=== PATIENT | male | born 1955 | race Native Hawaiian/Other Pacific Islander ===

== ENCOUNTER 2016-07-17 10:37 | Emergency (ER) | payer OTHER ==
[~2016-07-17] VITALS: Ht 180.3 cm; Wt 96.2 kg
[~2016-07-17 10:37] MED LIST: ASPIRIN325 M2 PO; CARDURA1 MG PO; CLOP75TA2 PO; DOXA2TAB PO; EQ ASPIRIN325 M1 OR; EXFORGE1 TA1 PO; FISH OIL1000 MG PO; FURO20TA67 PO; GLIM4TAB PO; GLIP5TAB65 PO; IMDUR30 MG PO; INSU100I2 SC; METF100038 PO; METF500T PO; METO25TA4 PO; NAMENDA10 MG PO; NITR0.4S2 SL; SIMV40TA57; TGT ENTERIC-CO325 MG PO; VIT C/VIT E PO; VITAMIN D31000 UNIT PO; ZOCOR80 MG PO
[2016-07-17 11:36] LABS: SODIUM 135 mmol/L (136-145)
[2016-07-17 11:50] LABS: PARTIAL THROMBOPLASTIN TIME 23.8 SECONDS (24.5-33.6); PLATELET COUNT 203 K/uL (142-355)
[2016-07-17 12:25] VITALS: BP 132/82; TEMP 97.8
== END 2016-07-17 11:43 | disposition short-term general hospital (02) ==
LOC: ED 10:37
PROVIDERS: Emergency Medicine
DX: R07.89 Other chest pain (principal); R07.2 Precordial pain
CPT/HCPCS: 36415; 80053; 82550; 83735; 83880; 84484; 85027; 85379; 85610; 85730; 93005; 99283

== ENCOUNTER 2016-07-17 12:58 | Outpatient (CLI) | payer OTHER | END 2016-07-17 14:09 | disposition short-term general hospital (02) | LOC: AMB 12:58 | DX: R07.89 Other chest pain (principal); R07.2 Precordial pain | CPT/HCPCS: A0425; A0427 ==

== ENCOUNTER 2016-10-03 10:41 | Emergency (ER) | payer OTHER ==
[~2016-10-03] VITALS: Ht 180.3 cm; Wt 106.6 kg
[2016-10-03 11:26] LABS: PLATELET COUNT 220 K/uL (142-355)
[2016-10-03 11:58] LABS: PARTIAL THROMBOPLASTIN TIME 24.7 SECONDS (24.5-33.6)
[2016-10-03 12:52] LABS: POTASSIUM 3.6 mmol/L (3.6-5.2); SODIUM 137 mmol/L (136-145)
[2016-10-03 16:55] VITALS: BP 128/77; TEMP 98
== END 2016-10-03 16:55 | disposition home or self-care (01) ==
LOC: ED 10:41
PROVIDERS: Emergency Medicine
DX: R19.7 Diarrhea, unspecified (principal); R10.31 Right lower quadrant pain
CPT/HCPCS: 36415; 80053; 81000; 82272; 85027; 85610; 85730; 87045; 87205; 87493; 87798; 87899; 99283

== ENCOUNTER 2016-10-16 09:59 | Outpatient (CLI) | payer OTHER | END 2016-10-16 19:04 | disposition home or self-care (01) | LOC: US 09:59 | DX: M79.605 Pain in left leg (principal) ==

== ENCOUNTER 2016-11-05 09:01 | Outpatient (CLI) | payer OTHER | END 2016-11-05 19:43 | disposition home or self-care (01) | LOC: MRI 09:01 | DX: M25.562 Pain in left knee (principal) ==

== ENCOUNTER 2016-12-21 20:39 | Observation (INO) | payer OTHER ==
[~2016-12-21] VITALS: Ht 180.3 cm; Wt 98.7 kg
[2016-12-21 20:54] VITALS: BP 124/68; TEMP 98.4
[2016-12-21 22:45] LABS: PLATELET COUNT 210 K/uL (142-355)
[2016-12-22] MEDS ORDERED: LIPITOR80 MG PO (01:01)
[2016-12-22] MEDS ORDERED: INVOKANA100 MG PO (01:02)
[2016-12-22] MEDS ORDERED: PRAS10TA PO (01:02)
[2016-12-22] MEDS ORDERED: ALBUTEROL0.083 % IN (01:04)
[2016-12-22] MEDS ORDERED: NOVOLOG SC (01:05)
[2016-12-22 04:00] VITALS: BP 140/72; TEMP 97.9
[2016-12-22 04:30] VITALS: BP 158/77; TEMP 97.9; Ht 180.3 cm; Wt 98.7 kg
[2016-12-22 05:20] LABS: PLATELET COUNT 205 K/uL (142-355)
[2016-12-22 05:29] LABS: POTASSIUM 3.8 mmol/L (3.6-5.2); SODIUM 134 mmol/L (136-145)
[2016-12-22 08:00] VITALS: BP 142/46; TEMP 98
[2016-12-22 12:00] VITALS: BP 128/68; TEMP 97.8
[2016-12-22 16:00] VITALS: BP 143/72; TEMP 97.7
[2016-12-22 18:53] LABS: PARTIAL THROMBOPLASTIN TIME 25.9 SECONDS (24.5-33.6)
[2016-12-22 20:00] VITALS: BP 144/73; TEMP 97.5
[2016-12-23] VITALS: BP 136/70; TEMP 97.6
[2016-12-23 04:00] VITALS: BP 132/61; TEMP 97.7
[2016-12-23 06:00] LABS: POTASSIUM 4.1 mmol/L (3.6-5.2); SODIUM 137 mmol/L (136-145)
[2016-12-23 06:07] LABS: PLATELET COUNT 216 K/uL (142-355)
[2016-12-23 08:17] VITALS: BP 113/59; TEMP 97.9
[2016-12-23 12:00] VITALS: BP 100/55; TEMP 97.8
[2016-12-23 16:00] VITALS: BP 109/52; TEMP 97.8
[2016-12-23 20:17] VITALS: BP 137/72; TEMP 97.6
[2016-12-24] VITALS: BP 122/58; BP 148/49; TEMP 97.5
[2016-12-24 04:00] VITALS: BP 129/56; TEMP 98.7
[2016-12-24 05:59] LABS: POTASSIUM 4.1 mmol/L (3.6-5.2); SODIUM 136 mmol/L (136-145)
[2016-12-24 06:07] LABS: PLATELET COUNT 213 K/uL (142-355)
[2016-12-24 08:00] VITALS: BP 127/62; TEMP 97.8
[2016-12-24 12:00] VITALS: BP 115/53; TEMP 98.8
[2016-12-24 15:48] VITALS: BP 125/50; TEMP 97.7
== END 2016-12-24 17:00 | disposition home or self-care (01) ==
LOC: ED 20:39 → MED/SURG 12-22 00:31
PROVIDERS: ADMIT Specialist
DX: J44.1 Chronic obstructive pulmonary disease with (acute) exacerbation (principal); R07.89 Other chest pain; I10 Essential (primary) hypertension; E11.9 Type 2 diabetes mellitus without complications; R09.1 Pleurisy; R06.02 Shortness of breath; D64.89 Other specified anemias
CPT/HCPCS: 36415; 36600; 80048; 82550; 82553; 82805; 82948; 83036; 83880; 84484; 85027; 85610; 85730; 93005; 94640; 94664; 94760; 96367; 96372; 96374; 96375; 99220; 99284; G0378; J1815; J1885; J1940; J2930

== ENCOUNTER 2017-08-07 07:55 | Outpatient (CLI) | payer OTHER ==
[~2017-08-07] VITALS: Ht 180.3 cm; Wt 98.0 kg
[~2017-08-07 07:55] MED LIST changes: +ALBUTEROL0.083 % IN; +INVOKANA100 MG PO; +LIPITOR80 MG PO; +NOVOLOG SC; +PRAS10TA PO
== END 2017-08-07 10:00 | disposition home or self-care (01) ==
LOC: NM 07:55
DX: R07.89 Other chest pain (principal)
CPT/HCPCS: A9500; J2785

== ENCOUNTER 2018-09-17 08:31 | Outpatient (CLI) | payer OTHER ==
[2018-09-17 09:09] LABS: PLATELET COUNT 204 K/uL (142-355)
[2018-09-17 09:10] LABS: POTASSIUM 3.9 mmol/L (3.6-5.2)
== END 2018-09-17 20:38 | disposition home or self-care (01) ==
LOC: LABW 08:31
PROVIDERS: Nurse Practitioner
DX: E11.21 Type 2 diabetes mellitus with diabetic nephropathy (principal); I10 Essential (primary) hypertension; E78.00 Pure hypercholesterolemia, unspecified; R53.82 Chronic fatigue, unspecified; E53.8 Deficiency of other specified B group vitamins; Z12.5 Encounter for screening for malignant neoplasm of prostate; E55.9 Vitamin D deficiency, unspecified; Z11.59 Encounter for screening for other viral diseases
CPT/HCPCS: 36415; 80053; 80061; 82043; 82306; 82570; 82607; 83036; 84154; 85027; 87522

== ENCOUNTER 2018-10-19 19:48 | Emergency (ER) | payer OTHER ==
[~2018-10-19] VITALS: Ht 180.3 cm; Wt 94.8 kg
[2018-10-19 20:47] LABS: PLATELET COUNT 224 K/uL (142-355)
[2018-10-19 21:26] LABS: POTASSIUM 3.2 mmol/L (3.6-5.2); SODIUM 137 mmol/L (136-145)
[2018-10-19 23:10] VITALS: BP 138/85; TEMP 98.2
== END 2018-10-19 23:13 | disposition home or self-care (01) ==
LOC: ED 19:48
PROVIDERS: Emergency Medicine
DX: J98.01 Acute bronchospasm (principal); R07.89 Other chest pain; R06.02 Shortness of breath
CPT/HCPCS: 36415; 80053; 82550; 82553; 83690; 83880; 84484; 85027; 85379; 93005; 94664; 96360; 96375; 99284; J1940

== ENCOUNTER 2018-11-26 23:23 | Observation (INO) | payer OTHER ==
[~2018-11-26] VITALS: Ht 180.3 cm; Wt 95.3 kg
[2018-11-26 23:23] VITALS: BP 162/96; TEMP 97.8
[2018-11-26 23:46] LABS: PLATELET COUNT 242 K/uL (142-355)
[2018-11-27] VITALS (16 sets, daily range): BP systolic 109–152; BP diastolic 66–79; TEMP 97.7–98.7; Ht 180.3 cm; Wt 95.3 kg
[2018-11-27 00:06] LABS: POTASSIUM 4.6 mmol/L (3.6-5.2)
== END 2018-11-27 17:18 | disposition home or self-care (01) ==
LOC: ED 23:23 → MED/SURG 11-27 01:51
PROVIDERS: Internal Medicine; ADMIT Internal Medicine
DX: R07.89 Other chest pain (principal); E11.9 Type 2 diabetes mellitus without complications; M54.5 Low back pain
CPT/HCPCS: 80053; 82550; 84484; 85027; 93005; 96372; 96374; 96375; 99220; 99285; G0378; J1650; J1815; J2270; J2405

== ENCOUNTER 2019-06-29 12:05 | Emergency (ER) | payer OTHER ==
[~2019-06-29] VITALS: Ht 180.3 cm; Wt 95.3 kg
[2019-06-29 12:05] VITALS: TEMP 97.8
[2019-06-29 14:58] LABS: PLATELET COUNT 192 K/uL (142-355)
[2019-06-29 15:03] LABS: POTASSIUM 3.5 mmol/L (3.6-5.2)
[2019-06-29 16:25] VITALS: BP 130/80
== END 2019-06-29 16:25 | disposition home or self-care (01) ==
LOC: ED 12:05
PROVIDERS: Family Medicine
DX: R51 Headache (principal); E87.6 Hypokalemia
CPT/HCPCS: 80053; 81000; 85027; 99283

== ENCOUNTER 2019-07-18 14:40 | Emergency (ER) | payer OTHER ==
[~2019-07-18] VITALS: Ht 180.3 cm; Wt 93.9 kg
[2019-07-18 14:50] VITALS: TEMP 98.5
[2019-07-18 15:37] LABS: POTASSIUM 3.9 mmol/L (3.6-5.2); SODIUM 139 mmol/L (136-145)
[2019-07-18 15:38] LABS: PLATELET COUNT 212 K/uL (142-355)
[2019-07-18 15:44] LABS: PARTIAL THROMBOPLASTIN TIME 25.1 SECONDS (24.5-33.6)
[2019-07-18 17:15] VITALS: BP 128/83
== END 2019-07-18 17:15 | disposition home or self-care (01) ==
LOC: ED 14:40
PROVIDERS: Hospitalist
DX: R19.7 Diarrhea, unspecified (principal); R11.2 Nausea with vomiting, unspecified; I50.9 Heart failure, unspecified
CPT/HCPCS: 36415; 80053; 81000; 81002; 82550; 83880; 84484; 85027; 85610; 85730; 93005; 99283

== ENCOUNTER 2019-08-05 07:23 | Outpatient (CLI) | payer OTHER ==
[2019-08-05 08:29] LABS: POTASSIUM 3.7 mmol/L (3.6-5.2)
== END 2019-08-05 19:42 | disposition home or self-care (01) ==
LOC: LABW 07:23
PROVIDERS: Internal Medicine
DX: E11.9 Type 2 diabetes mellitus without complications (principal); I10 Essential (primary) hypertension; E78.00 Pure hypercholesterolemia, unspecified
CPT/HCPCS: 36415; 80053; 80061; 82043; 82570; 83036; 84439; 84443

== ENCOUNTER 2019-08-12 17:19 | Emergency (ER) | payer OTHER ==
[~2019-08-12] VITALS: Ht 180.3 cm; Wt 93.9 kg
[2019-08-12 17:29] VITALS: BP 166/81; TEMP 97.7
== END 2019-08-12 19:12 | disposition home or self-care (01) ==
LOC: ED 17:19
PROC: 2W38X1Z Immobilization of Right Upper Extremity using Splint (ICD-10-PCS; principal; 2019-08-12)
DX: S43.491A Other sprain of right shoulder joint, initial encounter (principal); W17.89XA Other fall from one level to another, initial encounter; Y92.098 Other place in other non-institutional residence as the place of occurrence of the external cause
CPT/HCPCS: 96372; 99283; J1170; J2405

== ENCOUNTER 2020-02-16 09:39 | Outpatient (CLI) | payer OTHER ==
[2020-02-16 11:22] LABS: POTASSIUM 3.7 mmol/L (3.6-5.2)
== END 2020-02-16 22:00 | disposition home or self-care (01) ==
LOC: LABW 09:39
PROVIDERS: Internal Medicine
DX: E11.9 Type 2 diabetes mellitus without complications (principal)
CPT/HCPCS: 36415; 80053; 83036

== ENCOUNTER 2020-08-07 17:39 | Emergency (ER) | payer OTHER ==
[~2020-08-07] VITALS: Ht 180.3 cm; Wt 97.5 kg
[2020-08-07 17:49] VITALS: BP 135/73; TEMP 98.6
[2020-08-07 18:38] LABS: PLATELET COUNT 200 K/uL (142-355)
[2020-08-07 19:11] LABS: POTASSIUM 4.2 mmol/L (3.6-5.2); SODIUM 135 mmol/L (136-145)
[2020-08-07 19:20] LABS: PARTIAL THROMBOPLASTIN TIME 20.7 SECONDS (24.5-33.6)
== END 2020-08-07 21:11 | disposition still patient (30) ==
LOC: ED 17:39
PROVIDERS: Hospitalist
DX: J06.9 Acute upper respiratory infection, unspecified (principal); R04.2 Hemoptysis; N39.0 Urinary tract infection, site not specified; Z20.828 Contact with and (suspected) exposure to other viral communicable diseases
CPT/HCPCS: 36415; 80053; 82550; 82948; 83605; 83880; 84484; 85027; 85379; 85610; 85730; 87040; 87077; 87185; 87205; 87635; 87651; 93005; 96374; 99284; J1815; J2060; Q9963; U0003

== ENCOUNTER 2020-09-21 22:26 | Emergency (ER) | payer OTHER ==
[~2020-09-21] VITALS: Ht 180.3 cm; Wt 97.5 kg
[2020-09-21 23:28] LABS: PLATELET COUNT 188 K/uL (142-355)
[2020-09-21 23:46] LABS: POTASSIUM 4.9 mmol/L (3.6-5.2); SODIUM 128 mmol/L (136-145)
[2020-09-21 23:48] LABS: PARTIAL THROMBOPLASTIN TIME 22.8 SECONDS (24.5-33.6)
[2020-09-22 02:35] VITALS: BP 149/84; TEMP 98.3
== END 2020-09-22 02:35 | disposition home or self-care (01) ==
LOC: ED 22:26
PROVIDERS: Hospitalist
DX: E11.65 Type 2 diabetes mellitus with hyperglycemia (principal); Z79.4 Long term (current) use of insulin; I50.9 Heart failure, unspecified
CPT/HCPCS: 36415; 80053; 81000; 81002; 82550; 82948; 83880; 84484; 85027; 85610; 85730; 93005; 96360; 96375; 96376; 99284; J1815

== ENCOUNTER 2020-11-01 19:03 | Emergency (ER) | payer OTHER ==
[~2020-11-01] VITALS: Ht 167.6 cm; Wt 86.6 kg
[2020-11-01 19:10] VITALS: TEMP 96.9
[2020-11-01 19:49] LABS: PLATELET COUNT 231 K/uL (142-355)
[2020-11-01 19:59] LABS: POTASSIUM 4.6 mmol/L (3.6-5.2); SODIUM 137 mmol/L (136-145)
[2020-11-01 20:10] LABS: PARTIAL THROMBOPLASTIN TIME 23.2 SECONDS (24.5-33.6)
[2020-11-01 21:12] VITALS: BP 143/82
== END 2020-11-01 21:15 | disposition home or self-care (01) ==
LOC: ED 19:03
PROVIDERS: Family Medicine
DX: J20.9 Acute bronchitis, unspecified (principal); Z20.822 Contact with and (suspected) exposure to COVID-19
CPT/HCPCS: 80053; 82550; 82553; 83880; 84484; 85027; 85379; 85610; 85730; 87635; 93005; 94664; 96374; 99284; J2930; U0003

== ENCOUNTER 2020-11-29 13:21 | Emergency (ER) | payer OTHER ==
[~2020-11-29] VITALS: Ht 167.6 cm; Wt 86.6 kg
[2020-11-29 15:05] VITALS: BP 141/78; TEMP 98
== END 2020-11-29 15:05 | disposition home or self-care (01) ==
LOC: ED 13:21
DX: S70.02XA Contusion of left hip, initial encounter (principal); W18.39XA Other fall on same level, initial encounter; Y92.098 Other place in other non-institutional residence as the place of occurrence of the external cause
CPT/HCPCS: 96372; 99282; 99283; J1885

== ENCOUNTER 2021-02-21 20:50 | Emergency (ER) | payer OTHER ==
[~2021-02-21] VITALS: Ht 167.6 cm; Wt 86.6 kg
[2021-02-21 20:57] VITALS: TEMP 97.6
[2021-02-21 21:33] LABS: PLATELET COUNT 156 K/uL (142-355)
[2021-02-21 21:42] LABS: POTASSIUM 3.5 mmol/L (3.6-5.2); SODIUM 138 mmol/L (136-145)
[2021-02-21 21:52] LABS: PARTIAL THROMBOPLASTIN TIME 24.5 SECONDS (24.5-33.6)
[2021-02-21 22:11] VITALS: BP 128/71
== END 2021-02-21 22:12 | disposition home or self-care (01) ==
LOC: ED 20:50
PROVIDERS: Family Medicine
DX: R07.89 Other chest pain (principal); U07.1 COVID-19
CPT/HCPCS: 36415; 80053; 82550; 84484; 85027; 85610; 85730; 93005; 99283

== ENCOUNTER 2021-03-02 15:56 | Inpatient (IN) | payer OTHER ==
[~2021-03-02] VITALS: Ht 180.3 cm; Wt 81.8 kg
[2021-03-02 15:56] VITALS: BP 135/81; TEMP 97.5
[2021-03-02 16:21] LABS: PLATELET COUNT 179 K/uL (142-355)
[2021-03-02 16:30] LABS: POTASSIUM 3.3 mmol/L (3.6-5.2); SODIUM 135 mmol/L (136-145)
[2021-03-02 17:40] VITALS: BP 143/72
[2021-03-02 17:56] VITALS: BP 130/63
[2021-03-02 19:00] VITALS: BP 151/67; TEMP 100; Ht 180.3 cm; Wt 81.8 kg
[2021-03-02 20:37] VITALS: BP 131/70; TEMP 99.2
[2021-03-02 23:57] VITALS: BP 125/72; TEMP 97.5
[2021-03-03] VITALS (7 sets, daily range): BP systolic 110–151; BP diastolic 64–78; TEMP 97.7–98.5
[2021-03-03 04:47] LABS: PLATELET COUNT 179 K/uL (142-355)
[2021-03-03 05:20] LABS: POTASSIUM 4.2 mmol/L (3.6-5.2)
[2021-03-04] VITALS (7 sets, daily range): BP systolic 117–137; BP diastolic 58–72; TEMP 97.3–98.2
[2021-03-04 04:52] LABS: PLATELET COUNT 203 K/uL (142-355)
[2021-03-04 05:07] LABS: POTASSIUM 3.7 mmol/L (3.6-5.2)
--- NOTE | 2021-03-04 07:34 | NUR ---
RESULTS FOR ABG CAME BACK WITH PO2 AT 49. PHYSICIAN HAS BEEN CONTACTED WITH RESULTS. AWAITING FURTHER INSTRUCTIONS.
--- NOTE | 2021-03-04 09:00 | NUR ---
IN PT'S ROOM FOR MORNING ASSESSMENT. PT IS VERY QUIET AND NOT TALKING MUCH. PT TOOK MEDICINES WITHOUT ANY DIFFICULTY AND DENIED ANY PAIN OR NEEDS AT THIS TIME. WILL CONTINUE TO MONITOR.
--- NOTE | 2021-03-04 12:00 | NUR ---
ENTERED PT'S ROOM TO ADMINISTER INSULIN PRIOR TO LUNCH. PT IS ASLEEP ON HIS LEFT SIDE IN LOW FOWLERS. NO SIGNS OF DISTRESS ARE NOTED. INSULIN WAS ADMINISTERED INTO THE ABDOMEN ON THE RIGHT SIDE. BREATHING IS EVEN AND NONLABORED. WILL CONTINUE TO MONITOR.
--- NOTE | 2021-03-04 16:39 | NUR ---
ENTERED PT'S ROOM TO ADMINISTER INSULIN. PT'S BLOOD GLUCOSE WAS 203, NOVOLOG ASPART 10 UNITS IS SCHEDULED TO BE GIVEN PRIOR TO MEALS. PT SHOWS NO SIGNS OF DISTRESS. PT IS SITTING IN HIGH FOWLERS WATCHING TELEVISION. NASAL CANULA IS ON AT 3 L AND PT IS BREATHING NORMALLY. WILL CONTINUE TO MONITOR.
[2021-03-05 00:01] VITALS: BP 137/65; TEMP 97.4
[2021-03-05 04:00] VITALS: BP 103/44; TEMP 98.5
[2021-03-05 07:50] LABS: PLATELET COUNT 206 K/uL (142-355)
[2021-03-05 08:00] VITALS: BP 133/61; TEMP 97.5
[2021-03-05 08:12] LABS: POTASSIUM 3.8 mmol/L (3.6-5.2)
[2021-03-05 12:00] VITALS: BP 123/60; TEMP 97.6
[2021-03-05 16:00] VITALS: BP 140/67; TEMP 98.2
--- NOTE | 2021-03-05 19:28 | NUR ---
PT WOULD SIT UP ON THE SIDE OF THE BED MOST OF THE DAY. DENIES ANY PAIN/DISCOMFORT. NO NAD NOTED. PT ON O2 AT 3LPM VIA NC. PT AMBULATES WITH STEADY GAIT. NO VOICED COMPLAINTS. ADEQUATE APPETITE. BLOOD GLUCOSE LEVELS FLUCTUATED AND COVERED ACCORDING TO SLIDNING SCALE. PT ALERT AND ORIENTED. IV SITE TO LFA INTACT WITH NO REDNESS OR SWELLING NOTED.
[2021-03-05 20:00] VITALS: BP 118/61; TEMP 97.6
[2021-03-06] VITALS (7 sets, daily range): BP systolic 120–152; BP diastolic 61–78; TEMP 97.6–98.3
[2021-03-06 05:47] LABS: PLATELET COUNT 221 K/uL (142-355)
[2021-03-06 06:18] LABS: POTASSIUM 3.7 mmol/L (3.6-5.2)
--- NOTE | 2021-03-06 14:55 | NUR ---
PT AWAKE AND ALERT. ADMINISTERED MEDS AND PT TOLERATED WELL WITH NO ISSUES SWALLOWING MEDS. IV SITE TO LEFT FA LEAKING AND WAS D/C'D, WILL ATTEMPT TO OBTAIN NEW IV ACCESS. PT DENIES ANY PAIN OR DISCOMFORT. SPOKE WITH GRANDDAUGHTER TO GIVE AN UPDATE ON PT. PT WANTS TO BE DISCHARGED TO ATTEND RELATIVES . NO VOICED COMPLAINTS.
[2021-03-07 03:42] VITALS: BP 143/76; TEMP 97.9
[2021-03-07 04:44] LABS: PLATELET COUNT 237 K/uL (142-355)
[2021-03-07 05:19] LABS: POTASSIUM 3.6 mmol/L (3.6-5.2)
[2021-03-07 08:00] VITALS: BP 140/75; TEMP 98.3
[2021-03-07 12:00] VITALS: BP 122/78; TEMP 97.9
--- NOTE | 2021-03-07 15:53 | NUR ---
PER [place] [facility], PATIENT AMBULATED AROUND ROOM AND DESATS TO 85-89% IN ROOM. PATIENT PLACED BACK IN RECLINER. PATIENT O2 SATS RETURNED TO 94% ON ROOM AIR. PATIENT TOLERATED WELL WITH MINIMAL COMPLAINTS.
[2021-03-07 16:00] VITALS: BP 113/58; TEMP 98.1
[2021-03-07] MEDS ORDERED: DEXA4TAB2 PO (16:15)
[2021-03-07] MEDS ORDERED: AZIT500I (16:15)
[2021-03-07] MEDS ORDERED: Z-PAK PO (16:16)
[2021-03-07] MEDS ORDERED: ASCORBIC ACD500 MG PO (16:17)
[2021-03-07] MEDS ORDERED: ZINC220 MG PO (16:18)
== END 2021-03-07 18:30 | disposition home or self-care (01) | DRG 177 ==
LOC: ED 15:56 → MED/SURG 17:32
PROVIDERS: Emergency Medicine Emergency Medical Services; Internal Medicine Endocrinology, Diabetes & Metabolism; ADMIT Internal Medicine; ATTEND Internal Medicine
DX: U07.1 COVID-19 (principal); J12.82 Pneumonia due to coronavirus disease 2019; J96.01 Acute respiratory failure with hypoxia; J44.0 Chronic obstructive pulmonary disease with (acute) lower respiratory infection; I48.91 Unspecified atrial fibrillation; I25.10 Atherosclerotic heart disease of native coronary artery without angina pectoris; I25.2 Old myocardial infarction; E78.49 Other hyperlipidemia; E11.42 Type 2 diabetes mellitus with diabetic polyneuropathy; R00.1 Bradycardia, unspecified
CPT/HCPCS: 36415; 36600; 80053; 82728; 82805; 84484; 85027; 85379; 86140; 87635; 93005; 94760; 96360; 96361; 96374; 99284; J0456; J0696; J1650; J1815; J2405; J2930; U0003

== ENCOUNTER 2022-03-31 13:24 | Emergency (ER) | payer OTHER ==
[~2022-03-31] VITALS: Ht 180.3 cm; Wt 97.1 kg
[~2022-03-31 13:24] MED LIST changes: +ASCORBIC ACD500 MG PO; +AZIT500I; +DEXA4TAB2 PO; +Z-PAK PO; +ZINC220 MG PO
[2022-03-31 13:25] VITALS: TEMP 98.9
[2022-03-31 14:12] LABS: PLATELET COUNT 170 K/uL (142-355)
[2022-03-31 14:13] LABS: POTASSIUM 3.8 mmol/L (3.6-5.2)
[2022-03-31 14:25] LABS: PARTIAL THROMBOPLASTIN TIME 25.2 SECONDS (24.5-33.6)
[2022-03-31 16:45] VITALS: BP 128/62
== END 2022-03-31 16:55 | disposition home or self-care (01) ==
LOC: ED 13:24
PROVIDERS: Emergency Medicine
DX: R07.89 Other chest pain (principal); J18.9 Pneumonia, unspecified organism; I50.9 Heart failure, unspecified
CPT/HCPCS: 36415; 80053; 83880; 84484; 85027; 85379; 85610; 85730; 87040; 93005; 96374; 96375; 99284; J2270; J2405

== ENCOUNTER 2022-04-16 15:43 | Outpatient (CLI) | payer OTHER | END 2022-04-16 19:01 | disposition home or self-care (01) | LOC: RAD 15:43 | PROVIDERS: ATTEND Internal Medicine | DX: M79.605 Pain in left leg (principal); M25.562 Pain in left knee ==

== ENCOUNTER 2022-11-15 13:00 | Emergency (ER) | payer OTHER ==
[~2022-11-15] VITALS: Ht 180.3 cm; Wt 94.3 kg
[2022-11-15 13:11] VITALS: TEMP 97
[2022-11-15 14:35] VITALS: BP 174/76
== END 2022-11-15 14:54 | disposition home or self-care (01) ==
LOC: ED 13:00
DX: S42.301A Unspecified fracture of shaft of humerus, right arm, initial encounter for closed fracture (principal); W19.XXXA Unspecified fall, initial encounter
CPT/HCPCS: 96372; 99283; J1885

== ENCOUNTER 2022-12-02 14:51 | Outpatient (CLI) | payer OTHER | END 2022-12-02 20:11 | disposition home or self-care (01) | LOC: CT 14:51 | PROVIDERS: ATTEND Physician Assistant | DX: S42.231A 3-part fracture of surgical neck of right humerus, initial encounter for closed fracture (principal); Y92.89 Other specified places as the place of occurrence of the external cause ==

== ENCOUNTER 2023-03-26 09:40 | Outpatient (CLI) | payer OTHER | END 2023-03-26 19:22 | disposition home or self-care (01) | LOC: RAD 09:40 | PROVIDERS: ATTEND Physician Assistant | DX: S42.231A 3-part fracture of surgical neck of right humerus, initial encounter for closed fracture (principal); Y92.89 Other specified places as the place of occurrence of the external cause ==

== ENCOUNTER 2023-04-01 09:09 | Outpatient (CLI) | payer OTHER | END 2023-04-01 18:52 | disposition home or self-care (01) | LOC: RAD 09:09 | PROVIDERS: ATTEND Physician Assistant | DX: M54.2 Cervicalgia (principal); M25.562 Pain in left knee ==